=== PATIENT | male | born 1935 | race African-American/Black ===

== ENCOUNTER 2018-06-20 03:54 | Emergency (ER) | payer SELFPAY ==
[~2018-06-20] VITALS: Ht 177.8 cm; Wt 32.0 kg
[2018-06-20 04:23] VITALS: BP 0/0
== END 2018-06-20 05:38 | disposition expired ==
LOC: ER 03:54
DX: I46.9 Cardiac arrest, cause unspecified (principal); C34.90 Malignant neoplasm of unspecified part of unspecified bronchus or lung; C79.89 Secondary malignant neoplasm of other specified sites; R00.1 Bradycardia, unspecified; Z66 Do not resuscitate
CPT/HCPCS: 99285